=== PATIENT | male | born 1990 | race American Indian/Alaskan Native ===

== ENCOUNTER 2016-09-02 02:24 | Emergency (ER) | payer SELFPAY ==
[2016-09-02] MEDS ORDERED: NACL 0.9% IR ONE (03:06)
[2016-09-02] MEDS ORDERED: NACL 0.9% 500 ML IR ONE (03:06)
[2016-09-02] MEDS ORDERED: XYLOCAINE 2%/ EPI 1:200,000 INFILTRATI ONE ×2 (04:06→04:08)
--- NOTE | 2016-09-02 04:15 | XRay Report ---
FINAL REPORT PROCEDURE: XR HAND 2V RT TECHNIQUE: RIGHT hand radiographs, AP and lateral views. CPT 80753-AH HISTORY: trauma COMPARISON: No prior studies are available for comparison. FINDINGS: Fracture (s) and/or Dislocation(s): None . Alignment: Normal . Joint space(s): Normal . Soft tissues: Normal . Bone mineralization: Normal . Foreign bodies: 3 millimeter linear radiopaque density identified in the medial hand soft tissues over the metacarpophalangeal joint region.. IMPRESSION: There is no evidence of an acute fracture or dislocation. 3 millimeter radiopacity identified over the medial hand soft tissues, small foreign object in the soft tissues is suspected..
[2016-09-02] MEDS ORDERED: BOOSTRIX IM ONE (05:21)
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
[2016-09-02] MEDS ORDERED: TRIPLE ANTIBIOTIC TP ONE (05:32)
[2016-09-02 05:50] VITALS: BP 127/83
--- NOTE | 2016-09-02 10:33 | XRay Report ---
X-RAY RIGHT HAND 2 VIEWS: 09/02/16 05:25:00 CLINICAL: Status post removal of glass. FINDINGS: Since a previous exam at 03:53, the radiopaque foreign body adjacent to the fifth MCP joint has been removed. There is mild soft tissue swelling. No soft tissue air or other foreign body. The bones and joints are normal. IMPRESSION: Successful removal of foreign body.
== END 2016-09-02 05:51 | disposition home or self-care (01) ==
LOC: ED 02:24
DX: S61.421A Laceration with foreign body of right hand, initial encounter (principal); W22.8XXA Striking against or struck by other objects, initial encounter; Y93.89 Activity, other specified; Y99.8 Other external cause status; Y92.89 Other specified places as the place of occurrence of the external cause
CPT/HCPCS: 90471; 90715; A6250